=== PATIENT | male | born 1990 | race Two or more races ===

== ENCOUNTER 2019-10-27 23:25 | Emergency (ER) | payer SELFPAY ==
[~2019-10-27] VITALS: Ht 167.6 cm; Wt 72.6 kg
[2019-10-27] MEDS ORDERED: LORazepam Inj 2mg/ml 1ml ONE (23:28)
[2019-10-27] MEDS ORDERED: Haloperidol 5mg/ml Inj ONE (23:29)
[2019-10-27] MEDS ORDERED: LORazepam Inj 2mg/ml 1ml IV ONE (23:30)
[2019-10-27] MEDS ORDERED: Haloperidol 5mg/ml Inj IM ONE (23:30)
--- NOTE | 2019-10-27 23:32 | Emergency Room Report ---
History of Present Illness General Chief Complaint: Behavioral Complaint Source: Patient, EMS (Adrian Shaver MD) Present Illness HPI Disclaimer: Please note that this report is being documented using [employer] technology. This can lead to erroneous entry secondary to incorrect interpretation by the dictating instrument. HPI: 29-year male brought in by [employer] and EMS on 5150 hold for suicidal attempt. According to [employer] and EMS, the patient had been drinking alcohol tonight and was video chatting with his girlfriend. He was reportedly holding a knife up to his throat and superficially cutting his arms. Girlfriend called [employer] who found him agitated and combative. He arrives in handcuffs, abusive with staff, striking out and attempting to flee. He is screaming racial slurs at staff and police/EMS. Refusing to cooperate. Refusing to answer questions. PMH: Unable to obtain from patient PSH: Unable to obtain from patient Allergies: Unable to obtain from patient Social Hx: Unable to obtain from patient (Adrian Shaver MD) Allergies: Coded Allergies: No Known Allergies (Unverified , 10/27/19) COVID-19 Screening Contact w/high risk pt: No Experienced COVID-19 symptoms?: No COVID-19 Testing performed SETTER OUT: No (Adrian Shaver MD) Nursing Documentation-PMH Past Medical History Deferred: Pt Cognitively Impaired Past Medical History: Deferred (Adrian Shaver MD) Review of Systems All Other Systems: limited - Unable to obtain from patient (Adrian Shaver MD) Physical Exam Vital Signs Date Time Temp Pulse Resp B/P (MAP) Pulse Ox O2 Delivery O2 Flow Rate FiO2 10/27/19 23:22 137/80 (99) General: Awake and alert, agitated and combative, handcuffed to gurney, striking out at staff HEENT: NC/AT. EOMI. Cardiovascular: Tachycardic. S1 and S2 normal. No murmur appreciated Resp: Normal work of breathing. No cough, wheezing or crackles appreciated Skin: Intact. Abrasions over the knuckles and a very superficial laceration over the dorsum of the right hand. Does not require closure. MSK: Normal tone and bulk. Moving all extremities. No obvious deformity. Neuro: Awake and alert. Not cooperative with exam (Adrian Shaver MD) Medical Decision Making Restraint Reassesment I, Adrian Shaver MD, have personally evaluated this patient. Laboratory tests have been reviewed and addressed accordingly. The patient is deemed to present a danger to themselves and/or others. This is based on the exam, history (provided by patient, EMS/[employer] and/or family) and observed or reported behavior. Attempts for non-invasive measures have been considered and/or attempted, however, have been futile. It is in the best interest of the nursing staff, the patient, and others involved in this patient's care that behavioral restraints be applied. Patient evaluation reveals the following: Delirium, combativeness, danger to staff (Adrian Shaver MD) Diagnostic Impression: Primary Impression: Alcohol intoxication Qualified Codes: F10.929 - Alcohol use, unspecified with intoxication, unspecified ER Course Is a 29-year-old male placed on 5150 legal hold by [employer] for suicidal ideation/attempt. Arrives in stable condition though agitated and combative with staff and law enforcement/EMS. For patient and staff safety he was placed in leather restraints and given Haldol and Ativan. Will obtain broad labs for medical clearance in anticipation of psychiatric evaluation. Tetanus updated. Abrasions over the hands do not require closure. 0200: Patient sleeping comfortably on reevaluation. Labs have returned within normal limits aside from elevated blood alcohol level. Patient is medically cleared for psychiatric evaluation. Laboratory Tests Test 10/28/19 01:00 White Blood Count 6.1 K/UL (4.8-10.8) Red Blood Count 4.99 M/UL (4.70-6.10) Hemoglobin 15.2 G/DL (14.2-18.0) Hematocrit 43.0 % (42.0-52.0) Mean Corpuscular Volume 86 FL (80-99) Mean Corpuscular Hemoglobin 30.5 PG (27.0-31.0) Mean Corpuscular Hemoglobin Concent 35.3 G/DL (32.0-36.0) Red Cell Distribution Width 11.8 % (11.6-14.8) Platelet Count 212 K/UL (150-450) Mean Platelet Volume 8.0 FL (6.5-10.1) Neutrophils (%) (Auto) 56.5 % (45.0-75.0) Lymphocytes (%) (Auto) 35.6 % (20.0-45.0) Monocytes (%) (Auto) 4.7 % (1.0-10.0) Eosinophils (%) (Auto) 1.4 % (0.0-3.0) Basophils (%) (Auto) 1.8 % (0.0-2.0) Sodium Level 146 MMOL/L (136-145) H Potassium Level 3.2 MMOL/L (3.5-5.1) L Chloride Level 105 MMOL/L (98-107) Carbon Dioxide Level 26 MMOL/L (21-32) Anion Gap 15 mmol/L (5-15) Blood Urea Nitrogen 15 mg/dL (7-18) Creatinine 0.9 MG/DL (0.55-1.30) Estimated Glomerular Filtration Rate > 60 mL/min (>60) Glucose Level 103 MG/DL (74-106) Calcium Level 8.2 MG/DL (8.5-10.1) L Total Bilirubin 0.4 MG/DL (0.2-1.0) Aspartate Amino Transferase (AST) 26 U/L (15-37) Alanine Aminotransferase (ALT) 23 U/L (12-78) Alkaline Phosphatase 104 U/L (46-116) Total Protein 8.0 G/DL (6.4-8.2) Albumin 4.4 G/DL (3.4-5.0) Globulin 3.6 g/dL Albumin/Globulin Ratio 1.2 (1.0-2.7) Salicylates Level 1.1 ug/mL (2.8-20) L Acetaminophen Level < 2 MCG/ML (10-30) L Serum Alcohol 242 mg/dL (Adrian Shaver MD) ER Course 29-year-old male on a 5150, initially intoxicated, reconstituted, seen by Dr. Lutz and cleared 5150 Patient is suitable for discharge per Dr. Lutz Laboratory Tests Test 10/28/19 01:00 10/28/19 02:00 10/28/19 03:50 10/28/19 10:10 White Blood Count 6.1 K/UL (4.8-10.8) Red Blood Count 4.99 M/UL (4.70-6.10) Hemoglobin 15.2 G/DL (14.2-18.0) Hematocrit 43.0 % (42.0-52.0) Mean Corpuscular Volume 86 FL (80-99) Mean Corpuscular Hemoglobin 30.5 PG (27.0-31.0) Mean Corpuscular Hemoglobin Concent 35.3 G/DL (32.0-36.0) Red Cell Distribution Width 11.8 % (11.6-14.8) Platelet Count 212 K/UL (150-450) Mean Platelet Volume 8.0 FL (6.5-10.1) Neutrophils (%) (Auto) 56.5 % (45.0-75.0) Lymphocytes (%) (Auto) 35.6 % (20.0-45.0) Monocytes (%) (Auto) 4.7 % (1.0-10.0) Eosinophils (%) (Auto) 1.4 % (0.0-3.0) Basophils (%) (Auto) 1.8 % (0.0-2.0) Sodium Level 146 MMOL/L (136-145) H Potassium Level 3.2 MMOL/L (3.5-5.1) L Chloride Level 105 MMOL/L (98-107) Carbon Dioxide Level 26 MMOL/L (21-32) Anion Gap 15 mmol/L (5-15) Blood Urea Nitrogen 15 mg/dL (7-18) Creatinine 0.9 MG/DL (0.55-1.30) Estimated Glomerular Filtration Rate > 60 mL/min (>60) Glucose Level 103 MG/DL (74-106) Calcium Level 8.2 MG/DL (8.5-10.1) L Total Bilirubin 0.4 MG/DL (0.2-1.0) Aspartate Amino Transferase (AST) 26 U/L (15-37) Alanine Aminotransferase (ALT) 23 U/L (12-78) Alkaline Phosphatase 104 U/L (46-116) Total Protein 8.0 G/DL (6.4-8.2) Albumin 4.4 G/DL (3.4-5.0) Globulin 3.6 g/dL Albumin/Globulin Ratio 1.2 (1.0-2.7) Salicylates Level 1.1 ug/mL (2.8-20) L Acetaminophen Level < 2 MCG/ML (10-30) L Serum Alcohol 242 mg/dL 176 mg/dL 34 mg/dL Urine Color Pale yellow Urine Appearance Clear Urine pH 6 (4.5-8.0) Urine Specific [place] 1.020 (1.005-1.035) Urine Protein 2+ (NEGATIVE) H Urine Glucose (UA) Negative (NEGATIVE) Urine Ketones Negative (NEGATIVE) Urine Blood 1+ (NEGATIVE) H Urine Nitrite Negative (NEGATIVE) Urine Bilirubin Negative (NEGATIVE) Urine Urobilinogen Normal MG/DL (0.0-1.0) Urine Leukocyte Esterase Negative (NEGATIVE) Urine RBC 0-2 /HPF (0 - 0) H Urine WBC 0 /HPF (0 - 0) Urine Squamous Epithelial Cells None /LPF (NONE/OCC) Urine Bacteria None /HPF (NONE) Urine Opiates Screen Negative (NEGATIVE) Urine Barbiturates Screen Negative (NEGATIVE) Phencyclidine (PCP) Screen Negative (NEGATIVE) Urine Amphetamines Screen Negative (NEGATIVE) Urine Benzodiazepines Screen Negative (NEGATIVE) Urine Cocaine Screen Negative (NEGATIVE) Urine Marijuana (THC) Screen Negative (NEGATIVE) Microbiology Date/Time Source Procedure Growth Status 10/28/19 02:00 Nasopharynx SARS-CoV-2 RdRp Gene Assay - Final Complete (Dakota Lunsford MD) Last Vital Signs Date Time Temp Pulse Resp B/P (MAP) Pulse Ox O2 Delivery O2 Flow Rate FiO2 10/27/19 23:22 137/80 (99) (Adrian Shaver MD) Disposition: HOME, SELF-CARE Condition: Stable Referrals: [facility] Patient Instructions: Alcohol Intoxication, Vulc-sk-[id number] Additional Instructions: The patient was provided with discharge instructions, notified to follow-up with a primary care doctor and or specialist in the next 24-48 hours, and to return to the ED if they have worsening of their symptoms. Please note that this report is being documented using [employer] technology. This can lead to erroneous entry secondary to incorrect interpretation by the dictating instrument. Adrian Shaver MD Oct 27, 2019 23:32 Dakota Lunsford MD Oct 28, 2019 11:36
[2019-10-27] MEDS ORDERED: Tetanus/Diptheria/Pertussis IM ONE (23:45)
[2019-10-28] VITALS (7 sets, daily range): BP systolic 122–132; BP diastolic 76–87
[2019-10-28 01:33] LABS: BASOPHILS % (AUTO) 1.8 % (0.0-2.0); EOSINOPHILS % (AUTO) 1.4 % (0.0-3.0); HEMOGLOBIN 15.2 G/DL (14.2-18.0); LYMPHOCYTES % (AUTO) 35.6 % (20.0-45.0); MEAN CORPUSCULAR VOLUME 86 FL (80-99); MONOCYTES % (AUTO) 4.7 % (1.0-10.0); NEUTROPHILS % (AUTO) 56.5 % (45.0-75.0); PLATELET COUNT 212 K/UL (150-450); RED BLOOD COUNT 4.99 M/UL (4.70-6.10); RED CELL DISTRIBUTION WIDTH 11.8 % (11.6-14.8); WHITE BLOOD COUNT 6.1 K/UL (4.8-10.8)
[2019-10-28 01:44] LABS: ANION GAP 15 mmol/L (5-15); BLOOD UREA NITROGEN 15 mg/dL (7-18); CALCIUM 8.2 MG/DL (8.5-10.1); CARBON DIOXIDE 26 MMOL/L (21-32); CHLORIDE 105 MMOL/L (98-107); CREATININE 0.9 MG/DL (0.55-1.30); POTASSIUM 3.2 MMOL/L (3.5-5.1); SODIUM 146 MMOL/L (136-145)
[2019-10-28 01:48] LABS: ALANINE AMINOTRANSFERASE 23 U/L (12-78); ALBUMIN 4.4 G/DL (3.4-5.0); ALBUMIN/GLOBULIN RATIO 1.2 (1.0-2.7); ALKALINE PHOSPHATASE 104 U/L (46-116); ASPARTATE AMINO TRANSFERASE 26 U/L (15-37); BILIRUBIN,TOTAL 0.4 MG/DL (0.2-1.0)
[2019-10-28 02:26] LABS: APPEARANCE,URINE CLEAR; BILIRUBIN, URINE NEGATIVE (NEGATIVE); COLOR,URINE PALE YELLOW; GLUCOSE, URINE (UA) NEGATIVE (NEGATIVE); KETONES,URINE NEGATIVE (NEGATIVE); LEUKOCYTE ESTERASE ,URINE NEGATIVE (NEGATIVE); NITRITE,URINE NEGATIVE (NEGATIVE); PH,URINE 6 (4.5-8.0); PROTEIN,URINE 2+ (NEGATIVE); UROBILINOGEN,URINE NORMAL MG/DL (0.0-1.0)
[2019-10-28] MEDS ORDERED: Bacitracin Oint UD TOPIC ONE ×2 (04:33→05:00)
--- NOTE | 2019-10-28 18:30 | Consultation ---
DATE OF CONSULTATION: 10/28/2019 CONSULTING PHYSICIAN: Rafael Lutz MD HISTORY OF PRESENT ILLNESS: This is a male with history of alcohol abuse, who has been admitted to the hospital for medical stabilization. The patient presented with depressed mood, anhedonia, worthlessness, and anxiety. In the past, he is denying any depressive symptoms. He stated that he relapsed on alcohol for the past two days and he has been binging alcohol. He believed that he could cut "stuff" with knife as he did "fun." He cut his fingers. Police was called. The patient was brought in on 5150 for danger to self. Upon evaluation, the patient was calm and denying any anxiety symptoms or suicidal or homicidal ideation. No psychotic symptoms. PAST PSYCHIATRIC HISTORY: Significant for anxiety disorder. He denies any psychiatric hospitalization or suicide attempt. PAST MEDICAL HISTORY: None. ALLERGIES: Chart was reviewed. SUBSTANCE ABUSE HISTORY: Significant for alcohol. He denies any illicit drug use. Also, urine toxicology only positive for alcohol. MENTAL STATUS EXAMINATION: The patient is alert and oriented times self, place, situation, and date. Mood is neutral. Affect is blunted, congruent with mood. Thought process, linear and goal-oriented. Thought content, there is no suicidal or homicidal ideation. Cognition is intact. Insight and judgment is limited. ASSESSMENT: [place] I Alcohol dependence versus abuse, rule out anxiety disorder. [place] II Deferred. [place] III As above. [place] IV [place] V 50 PLAN: 1. The patient's 5150 will be discontinued. The patient will be discharged to self plan of care. The patient stated that he had an admission to sober living. He would be continued with sober living. 2. The patient is not an imminent danger to self or others. Rafael Lutz M.D. DR: ALEXIS JOB#: [id number] CC:
== END 2019-10-28 11:45 | disposition home or self-care (01) ==
LOC: EDBD 23:25 → EMR 23:40
DX: F10.129 Alcohol abuse with intoxication, unspecified (principal); R45.851 Suicidal ideations; F41.9 Anxiety disorder, unspecified; S61.411A Laceration without foreign body of right hand, initial encounter; X78.1XXA Intentional self-harm by knife, initial encounter; Y92.9 Unspecified place or not applicable; Z23 Encounter for immunization
CPT/HCPCS: 36415; 80053; 80307; 81003; 85025; 90471; 90715; 96372; 96374; 99285; G0480; J1630; U0002

== ENCOUNTER 2019-10-30 21:14 | Emergency (ER) | payer BC ==
[~2019-10-30] VITALS: Ht 177.8 cm; Wt 72.6 kg
--- NOTE | 2019-10-30 21:15 | NUR ---
ED Nurse Note: Patient brought in by ambulance [id number] with [employer] from a sober living due to alcohol intoxication. Per EMS patient drank a bottle of vodka approx 250ml. Patient was running outside the facility when the staff called per EMS. Patient denies any injury/ trauma. Lacerations on arms are dry and still visible from the last visit but no bleeding noted. Patient is AAOX1 and ambulatory. Denies chest pain, SOB/.
--- NOTE | 2019-10-30 21:25 | NUR ---
ED Nurse Note: ERMD at bedside
[2019-10-30 21:30] VITALS: BP 141/84
--- NOTE | 2019-10-30 21:45 | NUR ---
ED Nurse Note: Blood sent to lab for workup
[2019-10-30] MEDS ORDERED: Thiamine 100mg tab ORAL ONE (22:00)
--- NOTE | 2019-10-30 22:00 | NUR ---
ED Nurse Note: Urine specimen sent
[2019-10-30 22:04] LABS: BASOPHILS % (AUTO) 1.8 % (0.0-2.0); EOSINOPHILS % (AUTO) 4.2 % (0.0-3.0); HEMOGLOBIN 14.7 G/DL (14.2-18.0); LYMPHOCYTES % (AUTO) 37.5 % (20.0-45.0); MEAN CORPUSCULAR VOLUME 89 FL (80-99); MONOCYTES % (AUTO) 6.9 % (1.0-10.0); NEUTROPHILS % (AUTO) 49.6 % (45.0-75.0); PLATELET COUNT 210 K/UL (150-450); RED CELL DISTRIBUTION WIDTH 12.5 % (11.6-14.8); WHITE BLOOD COUNT 7.3 K/UL (4.8-10.8)
[2019-10-30 22:05] LABS: ANION GAP 11 mmol/L (5-15); BLOOD UREA NITROGEN 12 mg/dL (7-18); CALCIUM 8.3 MG/DL (8.5-10.1); CARBON DIOXIDE 25 MMOL/L (21-32); CHLORIDE 102 MMOL/L (98-107); CREATININE 1.1 MG/DL (0.55-1.30); POTASSIUM 2.8 MMOL/L (3.5-5.1); SODIUM 138 MMOL/L (136-145)
[2019-10-30 22:11] LABS: ALANINE AMINOTRANSFERASE 28 U/L (12-78); ALBUMIN 4.3 G/DL (3.4-5.0); ALBUMIN/GLOBULIN RATIO 1.2 (1.0-2.7); ALKALINE PHOSPHATASE 116 U/L (46-116); ASPARTATE AMINO TRANSFERASE 28 U/L (15-37); BILIRUBIN,TOTAL 0.3 MG/DL (0.2-1.0)
--- NOTE | 2019-10-30 22:11 | NUR ---
ED Nurse Note: Oral meds given - tolerated
--- NOTE | 2019-10-30 22:20 | NUR ---
ED Nurse Note: Patient refused to take Kdur per orem. ERMD notified
[2019-10-30] MEDS ORDERED: Haloperidol 5mg/ml Inj ONE (22:29)
[2019-10-30] MEDS ORDERED: LORazepam Inj 2mg/ml 1ml ONE (22:29)
[2019-10-30] MEDS ORDERED: DiphenhydrAMINE 50mg/ml Inj ONE (22:29)
[2019-10-30] MEDS ORDERED: Haloperidol Decanoate (Long Acting) 50mg Inj IM ONE (22:30)
[2019-10-30] MEDS ORDERED: LORazepam Inj 2mg/ml 1ml IM ONE (22:30)
[2019-10-30] MEDS ORDERED: DiphenhydrAMINE 50mg/ml Inj IM ONE (22:30)
--- NOTE | 2019-10-30 22:30 | NUR ---
Note mira in EDM - 10/30/19 at 2250 by [email or web address] ED Nurse Note: Patient became removed I
--- NOTE | 2019-10-30 22:30 | NUR ---
ED Nurse Note: 4 point leather restraints applied to the patient due to danger to others with orders from ERMD. Patient was violent and combative. Q15 assessment initiated
--- NOTE | 2019-10-30 22:30 | NUR ---
ED Nurse Note: Patient became violent and aggressive. Patient removed IV access and lunges at the staff hitting the computers and the floor. Patient had to be restrained. Security was called for assistance. IM meds given with orders from DIANA.
--- NOTE | 2019-10-30 22:40 | Emergency Room Report ---
History of Present Illness General Chief Complaint: Alcohol Intoxication Source: Patient Present Illness HPI 29-year-old male brought in by ambulance for alcohol intoxication. Patient was found outside of his board and care facility. He denies any complaints at this time. He is noncooperative with examination or history secondary to clinical intoxication. History is limited secondary to clinical status. The patient's symptoms were gradual onset, severity was moderate, duration since 1 day. Quality: Patient denies pain Past medical history: Alcohol abuse Past surgical history: Unable to obtain Smoking: Unable to obtain Alcohol use: Heavy Drug use: Unable to obtain Review of systems: Unable to obtain secondary to clinical intoxication. Denies headache, neck pain, chest pain, shortness of breath, abdominal pain, back pain or other symptoms 14 point Review of Systems is otherwise negative except per HPI Physical Exam: GENERAL: Awake_alert_ nontoxic, no acute distress Spo2 98% on RA -normal EYES: Extraocular muscles are intact. Conjunctivae clear. Lids without swelling. No nystagmus. No midface instability No oral/tongue lesions ENT: External nose and ear normal_in_appearance. Oropharynx clear. Head_atraumatic, Moist_oral_mucosa No nasal septal hematoma. No C/T/L-spine step-offs or deformities NECK: No JVD. No meningismus. No thyromegaly. Supple. Trachea midline RESP: Normal respiratory effort. Symmetric rise. No stridor. Clear_to_auscultation_No_rales_No_wheezes CARDIAC: Tachycardic and regular rhytm. No_significant pedal edema. ABDOMEN: Soft. Nondistended. Nontender_No_rebound_or_guarding. MSK: Normal muscle tone, without rigidity. Extremities without asymmetric deformity or swelling. SKIN: Warm and dry. No visible cyanosis or pallor NEUROLOGIC: Alert, oriented x3. Motor_and_sensation_grossly_intact. No truncal ataxia. Gait_normal Psych: Normal mood and affect, normal judgment and insight - COORDINATION OF CARE Case was discussed with: Patient Any labs and imaging that were ordered were interpreted as part of the medical decision making: Medical Decision Making/Plan: Differential diagnosis includes alcohol intoxication, alcohol withdrawal, hypoglycemia, drug intoxication or overdose, head injury, epidural hematoma, subdural hematoma, among others. On initial examination, patient is slightly agitated and tachycardic. He smells of alcohol and actively endorses drinking tonight. Denies any other coingestions. Upon arrival the patients fingerstick glucose was normal with no evidence of hypoglycemia. Because of the patients symptoms imaging of the brain / spine was obtained to rule out intracranial bleeding and / or vertebral fractures although the patient does not currently exhibit any focal neurologic deficits. The patient has no significant tremors and their presentation seems most consistent with alcohol intoxication. Labs showed hypokalemia K 2.7 which was repleted with K-Dur 40 M EQ p.o. and magnesium. BMP was repeated with K WNL. EKG showed normal sinus rhythm. Normal axis. Normal intervals. No junctional bradycardia. Patient became agitated and ripped out his IV and soft restraints and attempted to punch an RN and tech. Due to combativeness towards staff, patient necessitated chemical restraints and was placed in hard restraints until calm. He received haldol, ativan, benadryl. Etoh level was found to be 338. Repeat Etoh level downtrending. No acidosis, hypocalcemia or HENRY to suggest toxic alcohol ingestion. CT head is negative for ICH. ED intervention included NS 3L IV, Thiamine, and ativan. The patient will be observed in the emergency department with serial neurologic exams for improvement in their mental status. I did review previous ER visit from 2 days ago. Pt was seen in ED for exact complaint and was initially on [address] Lutz from Psych saw him and did not perceive him as an imminent danger therefore undid the hold. Care signed out to oncoming ER physician Dr Wiseman pending patient's clinical sobriety. Allergies: Coded Allergies: No Known Allergies (Unverified , 10/27/19) COVID-19 Screening Contact w/high risk pt: No Experienced COVID-19 symptoms?: No COVID-19 Testing performed PUBLIC HEALTH TEACHER: No Physical Exam Vital Signs Date Time Temp Pulse Resp B/P (MAP) Pulse Ox O2 Delivery O2 Flow Rate FiO2 10/30/19 21:09 98.6 105 18 158/98 (118) 98 Room Air Sp02 EP Interpretation: reviewed, normal Procedures Critical Care Time Critical Care Time Critical Care Statement Organ systems at risk include: Cardiac, circulatory, metabolic, endocrine Critical care performed for 55 minutes. Time is exclusive of separately billable procedures. Time includes: direct patient care, continuous monitoring and multiple patient reassessment, coordination of patient care, review of patient's medical records, medical consultation, family consultation regarding treatment decisions and documentation of patient care. Medical Decision Making Diagnostic Impression: Primary Impression: Alcohol intoxication Additional Impressions: Hypokalemia Agitation EKG Diagnostic Results AFSHIN Cramer Text 12-lead EKG (interpreted by me) Time: 2220 Indication: Rhythm analysis Tracing visualized and Interpreted by me. Rhythm: Normal sinus rhythm Rate: 96 bpm QTc: 449 Morphology: No_significant_ST_elevations_or_depressions, No STEMI Impression: Normal_sinus_rhythm_without_significant_abnormality Rhythm Strip Diag. Results Rhythm Strip Time: 22:40 EP Interpretation: yes Rate: 95 Rhythm: NSR, no PVC's, no ectopy CT/MRI/US Diagnostic Results CT/MRI/US Diagnostic Results : Impression CT head without contrast Impression: No acute findings. Reevaluation Time: 22:39 Last Vital Signs Date Time Temp Pulse Resp B/P (MAP) Pulse Ox O2 Delivery O2 Flow Rate FiO2 10/30/19 21:30 98 18 Room Air 10/30/19 21:30 98.6 141/84 98 Status: improved Disposition: HOME, SELF-CARE Admit Decision Time: 06:00 Condition: Stable Referrals: NOT CHOSEN IPA/MD,REFERRING (PCP) Patient Instructions: Alcohol Use Disorder, Alcohol Intoxication, Alcohol Abuse and Nutrition Additional Instructions: Instructions for patient/orchid transplanter: Follow up with your physician in 1-2 days. Do not drink and drive. Refrain from drinking alcohol as it is bad for your health. Follow-up with your doctor sooner if your condition requires a more timely clinical reevaluation. Return to the emergency department immediately if you feel that your condition is worsening or if you have any new or concerning symptoms. Review your discharge instructions and take any prescriptions given as instructed. [facility] [address] [facility] [address] [place] [address] [place] [address] [facility] [address] [facility] [address] [address] [address] [facility] [place] [address] [place] [address] [facility] [address] [place] [address] [facility] [place] [address] [place] [address] [facility] [place] [address] [place] [address] [facility] [address] [place] [address] [place] [address] [facility] [address] [place] [address] [facility] PROVIDES FREE OR LOW-COST HEALTH SERVICES TO PEOPLE WHO CAN SHOW PROOF THAT THEY LIVE IN [facility]. TO FIND MORE CLINICS PARTNERED WITH THE [facility] TO PROVIDE SERVICE, PLEASE CALL . [facility] Sumi Harp D.O. Oct 30, 2019 22:40
[2019-10-30] MEDS ORDERED: Haloperidol 5mg/ml Inj IM ONE (22:45)
[2019-10-30 23:30] VITALS: BP 130/81
--- NOTE | 2019-10-30 23:30 | NUR ---
ED Nurse Note: Restraints discontinued per ERMD. Assessment done; skin intact, no swelling, + sensation, active ROM. Patient resting on bed. No episodes of danger to others observed as of the moment. Will continue to monitor for any changes in behavior
[2019-10-31] MEDS ORDERED: LORazepam Inj 2mg/ml 1ml IV ONE (00:15)
--- NOTE | 2019-10-31 00:30 | NUR ---
ED Nurse Note: Pt to CT scan accompanied by RN and rehab technician
--- NOTE | 2019-10-31 00:40 | NUR ---
ED Nurse Note: Pt back from CT scan
--- NOTE | 2019-10-31 00:57 | Diagnostic Imaging Report ---
CT head without contrast History: Altered mental status. Technique more: CTDI is 53.4 mGy and DLP is 1179.1 mGy-cm. Technique more: One or more of the following dose reduction techniques were used: automated exposure control, adjustment of the mA and/or kV according to patient size, use of iterative reconstruction technique. Comparison: None Findings: No acute intracranial hemorrhage mass-effect or edema. Rao-white matter differentiation is seen to be normal. Ventricles, extra-axial CSF spaces are seen to be unremarkable. Visualized paranasal sinuses, mastoid air cells are normal. IMPRESSION: 1. No acute intracranial finding.
[2019-10-31 01:19] VITALS: BP 128/87
[2019-10-31] MEDS ORDERED: Bacitracin Oint UD TOPIC ONE ×2 (02:10→02:15)
--- NOTE | 2019-10-31 03:00 | NUR ---
ED Nurse Note: Repeat bmp/etoh level sent
[2019-10-31 03:06] VITALS: BP 124/78
[2019-10-31 03:18] LABS: ANION GAP 10 mmol/L (5-15); BLOOD UREA NITROGEN 9 mg/dL (7-18); CALCIUM 7.5 MG/DL (8.5-10.1); CARBON DIOXIDE 25 MMOL/L (21-32); CHLORIDE 105 MMOL/L (98-107); CREATININE 0.8 MG/DL (0.55-1.30); POTASSIUM 3.7 MMOL/L (3.5-5.1); SODIUM 140 MMOL/L (136-145)
[2019-10-31 05:00] VITALS: BP 129/82
--- NOTE | 2019-10-31 06:05 | NUR ---
ED Nurse Note: Patient ambulated to the restroom. Food and drinks provided
[2019-10-31 06:24] VITALS: BP 127/87
--- NOTE | 2019-10-31 06:24 | NUR ---
ER DISCHARGE NOTE: Patient is cleared to be discharged per ERMD, pt is aox4, on room air, with stable vital signs. pt was given dc and prescription instructions, pt was able to verbalize understanding, pt id band and iv site removed without complications. pt is able to ambulate with steady gait. pt took all belongings. food and clothing provided
== END 2019-10-31 06:29 | disposition home or self-care (01) ==
LOC: EDBD 21:14 → EMR 21:44
DX: F10.129 Alcohol abuse with intoxication, unspecified (principal); E87.6 Hypokalemia; R45.1 Restlessness and agitation
CPT/HCPCS: 36415; 70450; 80048; 80053; 80307; 85025; 93005; 96361; 96365; 96372; 99291; G0480; J1200; J1630; J1631; J3480; J7030; J8499